=== PATIENT | male | born 1955 | race Caucasian/White ===

== ENCOUNTER 2022-05-16 06:14 | Inpatient (IN) | payer BC, OTHER ==
[~2022-05-16] VITALS: Ht 172.7 cm; Wt 92.5 kg
[2022-05-16] MEDS ORDERED: METOCLOPRAMIDE HCL 5MG/ml INJ 2ml VIAL IV ONE (09:00)
[2022-05-16] MEDS ORDERED: SODIUM CHLORIDE 0.9% 1,000 ML IVB ONE (09:00)
[2022-05-16] MEDS ORDERED: IPRATROPIUM BROM 0.5 MG/2.5ML INH SOL NEB ONE (09:45)
[2022-05-16] MEDS ORDERED: ALBUTEROL SULF 2.5 MG/0.5ML(0.5%) NEB SOLN NEB ONE (09:45)
[2022-05-16 09:49] LABS: Mean Corpuscular Hgb Conc. 34.4 g/dL (32.0-36.0)
[2022-05-16] MEDS ORDERED: ALBUTEROL MEDNEB 2.5 mg/3ml NEB ONE (09:50)
[2022-05-16 10:10] LABS: Hematocrit 41.7 % (41.0-53.0); Hemoglobin 14.3 g/dL (13.5-17.5); Mean Corpuscular Volume 93.1 fL (80.0-100.0); Red Blood Cells 4.48 10^6/uL (4.5-5.90); Red Cell Distribution Width 13.7 % (11.8-14.3); White Blood Cell 20.2 10^3/uL (4.4-10.8)
[2022-05-16 10:16] LABS: Basophils % (manual) 0 (0.0-2.0); Blast Cells 0; Eosinophils % (manual) 0 (0-7); Metamyelocytes % 0; Myelocytes % 0; Promyelocytes % 0; Reactive Lymphocytes 0
[2022-05-16 11:41] LABS: Potassium 4.2 mmol/L (3.5-5.1)
[2022-05-16] MEDS ORDERED: AZITHROMYCIN 500MG/ 250ML 250 ML IV ONE (11:45)
[2022-05-16] MEDS ORDERED: cefTRIAXone 1GM/50ML D5W 50 ML IV ONE (11:45)
[2022-05-16 11:50] LABS: Albumin 3.8 g/dL (3.4-5.0); BUN/Creatinine Ratio 19.8; Bilirubin, Total 1.6 mg/dL (0.2-1.0); Calcium 9.1 mg/dL (8.5-10.1); Magnesium 1.6 mg/dL (1.6-2.6)
[2022-05-16 14:31] LABS: Band Neutrophils % (manual) 19; Lymphocytes % (manual) 8 (10.0-50.0); Monocytes % (manual) 8 (0-12)
[2022-05-16] MEDS ORDERED: PRED20TA2 PO (17:34)
[2022-05-16] MEDS ORDERED: BUDE1AER6 PO (17:34)
[2022-05-16] MEDS ORDERED: AMLO-489 PO (17:34)
[2022-05-16] MEDS ORDERED: ALBU108A5 PO (17:34)
[2022-05-16] MEDS ORDERED: AZIT250T9 PO (17:34)
[2022-05-16] MEDS ORDERED: TIOT17SP PO (17:34)
[2022-05-16] MEDS ORDERED: ROSU1TAB13 PO (17:34)
[2022-05-16] MEDS ORDERED: ALBUTEROL SULF 2.5 MG/0.5ML(0.5%) NEB SOLN NEB PRN (17:45)
[2022-05-16] MEDS: SODIUM CHLORIDE 0.9% 1,000 ML IV SCH (18:52)
[2022-05-16 19:21] LABS: Urine WBC None Seen /hpf (0 - 3)
[2022-05-16 19:39] LABS: Urine Bacteria NONE SEEN /hpf (None Seen); Urine Blood 1+ /uL (Negative); Urine Hyaline Cast FEW /lpf (0 - 2); Urine Specific Gravity 1.028 (1.001-1.035)
[2022-05-16 19:49] LABS: Alcohol, Urine < 3.0 mg/dL (0-10); Amphetamine Screen, Urine NEGATIVE (NEGATIVE); Barbiturate Scree,Urine NEGATIVE (NEGATIVE); Benzodiazephine Screen, Urine NEGATIVE (NEGATIVE); Cannabinoid Screen, Urine NEGATIVE (NEGATIVE); Cocaine Screen, Urine NEGATIVE (NEGATIVE); Opiate Scree,Urine NEGATIVE (NEGATIVE); Phencyclidine Screen, Urine NEGATIVE (NEGATIVE)
[2022-05-16] MEDS: IPRATROPIUM BROM 0.5 MG/2.5ML INH SOL NEB SCH (19:57)
[2022-05-16] MEDS: ALBUTEROL SULF 2.5 MG/0.5ML(0.5%) NEB SOLN NEB SCH (19:57)
[2022-05-16 20:11] LABS: INR 1.41 (0.9-1.15)
[2022-05-17] MEDS: ACETAMINOPHEN 325 MG TAB PO PRN ×3 (00:34→14:12)
[2022-05-17] MEDS: IPRATROPIUM BROM 0.5 MG/2.5ML INH SOL NEB SCH ×4 (01:11→19:39)
[2022-05-17] MEDS: ALBUTEROL SULF 2.5 MG/0.5ML(0.5%) NEB SOLN NEB SCH ×4 (01:11→19:39)
[2022-05-17 03:42] VITALS: BP 110/65
[2022-05-17] MEDS ORDERED: ALBUTEROL MEDNEB 2.5 mg/3ml NEB ONE ×4 (05:39→23:43)
[2022-05-17 07:27] LABS: Basophils # (auto) 0 10 ^3/uL (0-0.2); Basophils % (auto) 0.1 % (0.0-2.0); Eosinophils # (auto) 0 10 ^3/uL (0-0.8); Eosinophils % (auto) 0.2 % (0.0-7.0); Hematocrit 37.6 % (41.0-53.0); Hemoglobin 13.1 g/dL (13.5-17.5); Lymphocytes # (auto) 1.3 10 ^3/uL (0.4-5.4); Lymphocytes % (auto) 6.6 % (10.0-50.0); Mean Corpuscular Hemoglobin 32.5 pg (28.0-32.0); Mean Corpuscular Hgb Conc. 34.9 g/dL (32.0-36.0); Mean Corpuscular Volume 93.2 fL (80.0-100.0); Monocytes % (auto) 5.2 % (0.0-12.0); Neutrophils # (auto) 17.1 10 ^3/uL (1.6-8.6); Neutrophils % (auto) 87.9 % (37.0-80.0); Red Blood Cells 4.04 10^6/uL (4.5-5.90); Red Cell Distribution Width 13.4 % (11.8-14.3); White Blood Cell 19.4 10^3/uL (4.4-10.8)
[2022-05-17 07:43] LABS: Albumin 3.2 g/dL (3.4-5.0); Calcium 9.1 mg/dL (8.5-10.1); Potassium 4.1 mmol/L (3.5-5.1)
[2022-05-17 07:48] LABS: Bilirubin, Total 1.2 mg/dL (0.2-1.0); Total Protein 6.6 g/dL (6.4-8.2)
[2022-05-17] MEDS: SODIUM CHLORIDE 0.9% 1,000 ML IV SCH ×2 (08:07→22:06)
[2022-05-17] MEDS: cefTRIAXone 1GM/50ML D5W 50 ML IV SCH (09:12)
[2022-05-17] MEDS: amLODIPine BESYLATE 5 MG TAB PO SCH (09:51)
[2022-05-17] MEDS: ENOXAPARIN SOD 40 MG/0.4 ML SYRINGE SC SCH (09:52)
[2022-05-17] MEDS: AZITHROMYCIN 500MG/ 250ML 250 ML IV SCH (10:28)
[2022-05-17 17:00] VITALS: BP 138/65
[2022-05-17 17:50] VITALS: BP 138/65
[2022-05-17] MEDS: BUDESONIDE (INHALATION) 0.5 MG/2 ML NEB NEB SCH (19:39)
[2022-05-17 20:00] VITALS: BP 124/76
[2022-05-17 22:00] VITALS: BP 148/73
[2022-05-18 05:00] VITALS: BP 137/76
[2022-05-18] MEDS ORDERED: ALBUTEROL MEDNEB 2.5 mg/3ml NEB ONE ×3 (05:35→18:28)
[2022-05-18] MEDS: IPRATROPIUM BROM 0.5 MG/2.5ML INH SOL NEB SCH ×3 (06:02→12:04)
[2022-05-18] MEDS: ALBUTEROL SULF 2.5 MG/0.5ML(0.5%) NEB SOLN NEB SCH ×3 (06:03→12:09)
[2022-05-18] MEDS: BUDESONIDE (INHALATION) 0.5 MG/2 ML NEB NEB SCH (06:03)
[2022-05-18 08:00] VITALS: BP 132/75
[2022-05-18 09:00] VITALS: BP 134/72
[2022-05-18] MEDS: cefTRIAXone 1GM/50ML D5W 50 ML IV SCH (09:21)
[2022-05-18] MEDS: AZITHROMYCIN 500MG/ 250ML 250 ML IV SCH (09:21)
[2022-05-18] MEDS: amLODIPine BESYLATE 5 MG TAB PO SCH (09:24)
[2022-05-18] MEDS: ENOXAPARIN SOD 40 MG/0.4 ML SYRINGE SC SCH (09:24)
[2022-05-18] MEDS: ACETAMINOPHEN 325 MG TAB PO PRN (11:46)
[2022-05-18 13:00] VITALS: BP 132/75
[2022-05-18] MEDS ORDERED: ALBU108A5 PO (15:46)
[2022-05-18] MEDS ORDERED: DOXY-286 PO (15:46)
[2022-05-18] MEDS ORDERED: PRED20TA2 PO (15:46)
[2022-05-18 17:00] VITALS: BP 147/91
[2022-05-18 18:55] VITALS: BP 137/81
== END 2022-05-18 19:16 | disposition home or self-care (01) | DRG 551 ==
LOC: ER 06:14 → EDBD 06:14 → OVERFLOW 17:31 → WEST WING 05-17 16:30
PROVIDERS: ADMIT Nurse Practitioner Family; ATTEND Hospitalist
DX: M54.16 Radiculopathy, lumbar region (principal); J18.1 Lobar pneumonia, unspecified organism; J96.01 Acute respiratory failure with hypoxia; N17.9 Acute kidney failure, unspecified; J44.0 Chronic obstructive pulmonary disease with (acute) lower respiratory infection; E87.1 Hypo-osmolality and hyponatremia; J98.11 Atelectasis; D72.828 Other elevated white blood cell count; Z20.822 Contact with and (suspected) exposure to COVID-19; K76.0 Fatty (change of) liver, not elsewhere classified; K42.9 Umbilical hernia without obstruction or gangrene; Z87.891 Personal history of nicotine dependence
CPT/HCPCS: 36415; 71046; 72131; 74176; 80053; 80307; 81001; 83690; 83735; 85007; 85025; 85027; 85610; 87040; 87426; 87804; 93005; 93886; 94640; 96361; 96365; 96368; 96375; G0378; J0696

== ENCOUNTER 2022-11-29 15:44 | Emergency (ER) | payer BC ==
[~2022-11-29] VITALS: Ht 172.7 cm; Wt 99.7 kg
[~2022-11-29 15:44] MED LIST: ALBU108A5 PO; AMLO1TAB22 PO; AZIT-43 PO; BUDE1AER6 PO; DOXY-286 PO; PRED20TA2 PO; ROSU10TA64 PO; TIOT17SP PO
[2022-11-29 16:39] LABS: Basophils # (auto) 0 10 ^3/uL (0-0.2); Basophils % (auto) 0.5 % (0.0-2.0); Eosinophils # (auto) 0.6 10 ^3/uL (0-0.8); Eosinophils % (auto) 7.2 % (0.0-7.0); Hematocrit 40.7 % (41.0-53.0); Hemoglobin 13.8 g/dL (13.5-17.5); Lymphocytes # (auto) 2.5 10 ^3/uL (0.4-5.4); Mean Corpuscular Hemoglobin 31.9 pg (28.0-32.0); Mean Corpuscular Hgb Conc. 33.9 g/dL (32.0-36.0); Mean Corpuscular Volume 93.9 fL (80.0-100.0); Monocytes # (auto) 0.5 10 ^3/uL (0-1.3); Monocytes % (auto) 5.8 % (0.0-12.0); Neutrophils # (auto) 4.7 10 ^3/uL (1.6-8.6); Neutrophils % (auto) 56.5 % (37.0-80.0); Nucleated Red Blood Cells % 0.1 %; Red Blood Cells 4.33 10^6/uL (4.5-5.90); Red Cell Distribution Width 14.5 % (11.8-14.3); White Blood Cell 8.4 10^3/uL (4.4-10.8)
[2022-11-29 16:57] LABS: Calcium 9.1 mg/dL (8.5-10.1); Potassium 4.2 mmol/L (3.5-5.1)
[2022-11-29 17:03] LABS: BUN/Creatinine Ratio 23.1 (10.0-20.0); Bilirubin, Total 0.5 mg/dL (0.2-1.0); Total Protein 6.9 g/dL (6.4-8.2)
[2022-11-29] MEDS ORDERED: DOXY1CAP57 PO (23:49)
[2022-11-30] MEDS ORDERED: cefTRIAXone SOD 1,000 MG VL IM ONE
[2022-11-30 00:50] VITALS: BP 184/79; PULSE 57; RESP 20; O2SAT 95
== END 2022-11-30 00:51 | disposition home or self-care (01) ==
LOC: ER 15:44
DX: L03.115 Cellulitis of right lower limb (principal); Z79.899 Other long term (current) drug therapy
CPT/HCPCS: 36415; 73590; 80053; 85025; 96372; 99284; J0696

== ENCOUNTER 2022-12-05 06:06 | Emergency (ER) | payer MEDICARE, BC ==
[~2022-12-05] VITALS: Ht 172.7 cm; Wt 90.9 kg
[~2022-12-05 06:06] MED LIST changes: +DOXY1CAP57 PO
[2022-12-05 07:49] VITALS: BP 152/82; TEMP 98.1; O2SAT 95
[2022-12-05] MEDS ORDERED: AUG875T PO ×2 (07:55→09:09)
[2022-12-05] MEDS ORDERED: cefTRIAXone SOD 1,000 MG VL IM ONE (08:00)
[2022-12-05] MEDS ORDERED: ACETAMINOPHEN 500 MG TAB PO ONE (08:00)
[2022-12-05 08:40] VITALS: PULSE 65; RESP 18
== END 2022-12-05 08:51 | disposition home or self-care (01) ==
LOC: ER 06:06
DX: L03.115 Cellulitis of right lower limb (principal); Z79.899 Other long term (current) drug therapy
CPT/HCPCS: 96372; 99283; J0696

== ENCOUNTER 2023-11-21 06:11 | Emergency (ER) | payer MEDICARE, BC ==
[~2023-11-21] VITALS: Ht 172.7 cm; Wt 103.8 kg
[~2023-11-21 06:11] MED LIST changes: +AUG875T PO
[2023-11-21 07:41] LABS: Basophils # (auto) 0 10 ^3/uL (0-0.2); Basophils % (auto) 0.6 % (0.0-2.0); Eosinophils # (auto) 0.6 10 ^3/uL (0-0.8); Eosinophils % (auto) 8.1 % (0.0-7.0); Hematocrit 40.4 % (41.0-53.0); Lymphocytes % (auto) 29.1 % (10.0-50.0); Mean Corpuscular Hemoglobin 31.5 pg (28.0-32.0); Mean Corpuscular Hgb Conc. 34.7 g/dL (32.0-36.0); Mean Corpuscular Volume 90.9 fL (80.0-100.0); Monocytes # (auto) 0.5 10 ^3/uL (0-1.3); Monocytes % (auto) 7.6 % (0.0-12.0); Neutrophils # (auto) 3.8 10 ^3/uL (1.6-8.6); Neutrophils % (auto) 54.6 % (37.0-80.0); Red Blood Cells 4.44 10^6/uL (4.5-5.90); Red Cell Distribution Width 14.4 % (11.8-14.3)
[2023-11-21] MEDS ORDERED: CEPH500C PO (07:50)
[2023-11-21 07:59] VITALS: BP 152/94; PULSE 64; RESP 17; TEMP 98.3; O2SAT 95
== END 2023-11-21 08:01 | disposition home or self-care (01) ==
LOC: ER 06:11
DX: S81.819D Laceration without foreign body, unspecified lower leg, subsequent encounter (principal); R03.0 Elevated blood-pressure reading, without diagnosis of hypertension; Z48.00 Encounter for change or removal of nonsurgical wound dressing; Z79.899 Other long term (current) drug therapy; W45.8XXD Other foreign body or object entering through skin, subsequent encounter
CPT/HCPCS: 36415; 85025